=== PATIENT | female | born 1975 | race Caucasian/White ===

== ENCOUNTER 2025-05-05 11:51 | Outpatient (CLI) | payer OTHER, SELFPAY ==
--- NOTE | 2025-05-05 12:15 | CRLHL7_ITS ---
For Patients: As a result of the Century Cures Act, medical imaging exams and procedure reports are released immediately into your electronic medical record. You may view this report before your referring provider. If you have questions, please contact your health care provider. INDICATION: menorrhagia, assess fibroids COMPARISON: CT 06/03/2024, ultrasound 04/19/2024 TECHNIQUE: 2D duong-scale and color Doppler images were acquired of the pelvis using a transabdominal and transvaginal approach. Transvaginal imaging performed to better visualize the endometrial stripe and ovaries. FINDINGS: Cystic area adjacent to or involving the superior left uterus measures 3.3 x 3.3 x 3.4 cm. Left partially exophytic fundal fibroid measures 5.0 x 4.2 x 4.4 cm. Intramural fibroid in the midportion measures 2.4 x 2.2 x 2.2 cm. Lower uterine segment fibroid measures 14 x 15 x 14 millimeters. Uterine echotexture is heterogeneous. Uterus measures 12.2 cm in length by 6.0 cm in AP diameter by 7.5 cm in transverse dimension. The endometrium is difficult to assess due to the presence of multiple fibroids. IUD, however, appears to be in the lower uterus. The ovaries are not visualized due to overlying bowel gas. There are no suspicious fluid collections within the cul-de-sac. IMPRESSION: Multiple uterine fibroids. IUD appears to be in the lower uterus. Incomplete evaluation of the endometrium due to the presence of the multiple fibroids. Dictated by Maximilian Padgett MD @ 05/05/2025 3:46:58 PM (Electronically Signed)
== END 2025-05-05 11:52 | disposition home or self-care (01) ==
LOC: US 11:52
PROVIDERS: PCP Family Medicine; Visit Provider Obstetrics & Gynecology
DX: N92.1 Excessive and frequent menstruation with irregular cycle (principal); D25.9 Leiomyoma of uterus, unspecified
CPT/HCPCS: 76830; 76856